=== PATIENT | female | born 1945 | race African-American/Black ===

== ENCOUNTER 2022-06-25 19:41 | Observation (INO) | payer MEDICARE, MEDICAID ==
[2022-06-25 20:06] VITALS: BMI 29.6
[2022-06-25] MEDS ORDERED: HYDROcodone/Acetaminophen 5/325 mg Tablet PO PRN (21:53)
[2022-06-25] MEDS ORDERED: Acetaminophen 325 MG TAB PO PRN (21:53)
[2022-06-25] MEDS ORDERED: Nitroglycerin 0.4 MG TAB (25 Tab Bottle) SL PRN (21:53)
[2022-06-25] MEDS ORDERED: Cyclobenzaprine 10 MG TAB PO PRN (22:58)
[2022-06-25] MEDS ORDERED: Furosemide 40 MG/4 ML VIAL SLOW IVP SCH (23:00)
[2022-06-25] MEDS ORDERED: cloNIDine 0.1 MG TAB PO PRN (23:15)
[2022-06-25] MEDS: Nitroglycerin 2% Ointment 1 INCH/1 GM Packet TOP SCH (23:17)
[2022-06-26 05:12] LABS: Hemoglobin A1c 5.4 % (4.0-6.0)
[2022-06-26 05:13] LABS: #Eosinphils 0.4 thou/uL (0.0-0.7); #Lymphocytes 2.4 thou/uL (1.20-3.40); #Monocytes 0.5 thou/uL (0.11-0.59); #Neutrophils 2.5 thou/uL (1.40-6.50); %Basophils 0.8 % (0.0-1.0); %Eosinophils 7.6 % (0.0-10.0); %Lymphocytes 40.6 % (21.0-51.0); %Monocytes 8.3 % (0.0-10.0); %Neutrophils 42.8 % (42.0-75.0); Hemoglobin 12.6 g/dL (12.0-16.0); Mean Corpuscular HGB CONC 33.1 g/dL (32.0-36.0); Mean Corpuscular Hemoglobin 30.3 pg (27.0-31.0); Mean Corpuscular Volume 91.7 fl (78.0-98.0); Mean Platelet Volume 8.4 fL (7.4-10.4); Platelet Count 211 10x3/uL (130-400); RBC Distribution Width 12.5 % (11.5-14.5); Red Blood Cell (RBC) Count 4.14 mill/uL (4.20-5.40); White Blood Cell (WBC) Count 5.9 10x3/uL (4.8-10.8)
[2022-06-26 05:32] LABS: Anion Gap 11 mmol/L (10-20); BUN (Urea Nitrogen) 19 mg/dL (9.8-20.1); Calc. Creatinine Clearance 91 mL/min (70-130); Calcium 9.1 mg/dL (7.8-10.44); Carbon Dioxide 27 mmol/L (23-31); Cardiac Risk 4.5 (Less than 4.5); Chloride 104 mmol/L (98-107); Cholesterol 231 mg/dl (< 200 Desired); Estimated GFR 77; Glucose 95 mg/dL (83-110); HDL Cholesterol 51 mg/dL (>60 Neg Risk); LDL Cholesterol, Calculated 158 mg/dL; Potassium 3.5 mmol/L (3.5-5.1); Sodium 138 mmol/L (136-145); Triglycerides 112 mg/dL (Less than 150)
[2022-06-26] MEDS: Nitroglycerin 2% Ointment 1 INCH/1 GM Packet TOP SCH ×2 (05:58→14:41)
[2022-06-26] MEDS ORDERED: Valsartan 80 MG TAB PO SCH (09:00)
[2022-06-26] MEDS ORDERED: Aspirin Chewable 81 MG TAB PO SCH (09:00)
[2022-06-26] MEDS ORDERED: Regadenoson 0.4 MG/5 ML SYRINGE ONE (09:04)
[2022-06-26 16:09] VITALS: BP 137/74; TEMP 97.6
[2022-06-26] MEDS ORDERED: Carvedilol 6.25 MG TAB PO SCH (17:00)
[2022-06-26] MEDS ORDERED: Metoprolol Tartrate 25 MG TAB PO SCH (18:00)
== END 2022-06-26 17:40 | disposition home or self-care (01) ==
LOC: 2SW 20:00
PROVIDERS: ADMIT Internal Medicine; ATTEND Internal Medicine
DX: R10.13 Epigastric pain (principal); I11.0 Hypertensive heart disease with heart failure; I50.32 Chronic diastolic (congestive) heart failure; E78.5 Hyperlipidemia, unspecified; I49.3 Ventricular premature depolarization; I45.10 Unspecified right bundle-branch block; I08.8 Other rheumatic multiple valve diseases; Z87.891 Personal history of nicotine dependence; Z79.1 Long term (current) use of non-steroidal anti-inflammatories (NSAID); Z79.82 Long term (current) use of aspirin; Z79.899 Other long term (current) drug therapy; Z88.1 Allergy status to other antibiotic agents; Z91.010 Allergy to peanuts; Z20.822 Contact with and (suspected) exposure to COVID-19
CPT/HCPCS: 78452; 80048; 80061; 83036; 83735; 83880; 84443; 85025; 93017; 93306; 94760; A9500; U0003; U0005; 36415; 96372; 96374; G0378; J1650; J1940

== ENCOUNTER 2022-07-08 03:08 | Inpatient (IN) | payer MEDICARE, MEDICAID ==
[2022-07-08] MEDS ORDERED: Ipratropium/Albuterol 3 ML NEB ONE (03:55)
[2022-07-08 04:01] LABS: #Eosinphils 0.3 thou/uL (0.0-0.7); #Lymphocytes 1.5 thou/uL (1.20-3.40); #Monocytes 0.3 thou/uL (0.11-0.59); #Neutrophils 4.3 thou/uL (1.40-6.50); %Basophils 0.5 % (0.0-1.0); %Eosinophils 4.8 % (0.0-10.0); %Lymphocytes 23.6 % (21.0-51.0); %Monocytes 4.3 % (0.0-10.0); %Neutrophils 66.9 % (42.0-75.0); Hemoglobin 12.3 g/dL (12.0-16.0); Mean Corpuscular HGB CONC 33.7 g/dL (32.0-36.0); Mean Corpuscular Hemoglobin 30.8 pg (27.0-31.0); Mean Corpuscular Volume 91.4 fl (78.0-98.0); Mean Platelet Volume 8.8 fL (7.4-10.4); Platelet Count 196 10x3/uL (130-400); RBC Distribution Width 12.6 % (11.5-14.5); Red Blood Cell (RBC) Count 3.98 mill/uL (4.20-5.40); White Blood Cell (WBC) Count 6.4 10x3/uL (4.8-10.8)
[2022-07-08 04:20] LABS: ALT (SGPT) 38 U/L (8-55); AST (SGOT) 44 U/L (5-34); Albumin 3.7 g/dL (3.4-4.8); Alkaline Phosphatase 62 U/L (40-110); Anion Gap 13 mmol/L (10-20); BUN (Urea Nitrogen) 15 mg/dL (9.8-20.1); Bilirubin, Total 0.5 mg/dL (0.2-1.2); Calc. Creatinine Clearance 0 mL/min (70-130); Calcium 8.9 mg/dL (7.8-10.44); Carbon Dioxide 22 mmol/L (23-31); Chloride 109 mmol/L (98-107); Estimated GFR 77; Globulin 3.3 g/dL (2.4-3.5); Glucose 143 mg/dL (83-110); Magnesium 1.9 mg/dL (1.6-2.6); Potassium 3.8 mmol/L (3.5-5.1); Sodium 140 mmol/L (136-145)
[2022-07-08] MEDS ORDERED: Acetaminophen 500 MG TAB ONE (04:27)
[2022-07-08] MEDS ORDERED: Aspirin Chewable 81 MG TAB ONE (04:27)
[2022-07-08 06:49] LABS: Bacteria/HPF None Seen HPF (None Seen); Bilirubin Negative (Negative); Blood, Urine Negative (Negative); Clarity Clear (Clear); Glucose, Urine (Dipstick) Normal (Negative); Ketone, Urine Negative (Negative); Leukocyte Negative Leu/uL (Negative); Nitrite Negative (Negative); Protein, Urine (Dipstick) 50 mg/dL (Neg-Trace); RBC/HPF 0-3 HPF (0-3); Specific Gravity, Urine 1.016 (1.002-1.036); Squamous Epithelial 0-3 HPF (0-3); Urobilinogen Normal mg/dL (Less than 2); WBC/HPF 0-3 HPF (0-3)
[2022-07-08 08:32] LABS: Troponin I 0.024 ng/mL (< 0.028)
[2022-07-08] MEDS ORDERED: Acetaminophen 325 MG TAB PO PRN (08:33)
[2022-07-08] MEDS ORDERED: Ipratropium/Albuterol 3 ML NEB NEB PRN (08:33)
[2022-07-08] MEDS ORDERED: Metoclopramide HCl 10 MG/2 ML VIAL IVP PRN (08:37)
[2022-07-08] MEDS ORDERED: Iopamidol-370 76% 500 ML 1 ML ONE (08:38)
[2022-07-08] MEDS: Valsartan 80 MG TAB PO SCH (09:28)
[2022-07-08] MEDS: Carvedilol 6.25 MG TAB PO SCH ×2 (10:08→16:45)
[2022-07-08 10:37] LABS: Troponin I 0.017 ng/mL (< 0.028)
[2022-07-08] MEDS ORDERED: Furosemide 20 MG/2 ML VIAL SLOW IVP SCH (10:45)
[2022-07-08] MEDS ORDERED: Furosemide 20 MG/2 ML VIAL ONE (11:02)
[2022-07-08 13:50] VITALS: BMI 29.3
[2022-07-08] MEDS: Atorvastatin Calcium 20 MG TAB PO SCH (21:30)
[2022-07-09] MEDS ORDERED: Electrolyte Replacement Protocol 1 EACH FS SCH (01:45)
[2022-07-09] MEDS ORDERED: Magnesium 2 GM/50 ML(in water) 2 GM in Premix Bag 1 BAG IVPB SCH (02:00)
[2022-07-09 02:20] LABS: #Lymphocytes 1.7 thou/uL (1.20-3.40); #Monocytes 0.7 thou/uL (0.11-0.59); #Neutrophils 6.8 thou/uL (1.40-6.50); %Basophils 0.2 % (0.0-1.0); %Eosinophils 0.2 % (0.0-10.0); %Lymphocytes 18.1 % (21.0-51.0); %Monocytes 7.5 % (0.0-10.0); Hemoglobin 11.4 g/dL (12.0-16.0); Mean Corpuscular HGB CONC 33.4 g/dL (32.0-36.0); Mean Corpuscular Hemoglobin 30.8 pg (27.0-31.0); Platelet Count 190 10x3/uL (130-400); RBC Distribution Width 12.7 % (11.5-14.5); Red Blood Cell (RBC) Count 3.69 mill/uL (4.20-5.40); White Blood Cell (WBC) Count 9.2 10x3/uL (4.8-10.8)
[2022-07-09 02:36] LABS: Anion Gap 8 mmol/L (10-20); BUN (Urea Nitrogen) 25 mg/dL (9.8-20.1); Calc. Creatinine Clearance 73 mL/min (70-130); Calcium 9.4 mg/dL (7.8-10.44); Carbon Dioxide 26 mmol/L (23-31); Chloride 108 mmol/L (98-107); Estimated GFR 60; Glucose 104 mg/dL (83-110); Magnesium 2.1 mg/dL (1.6-2.6); Potassium 4.1 mmol/L (3.5-5.1); Sodium 138 mmol/L (136-145)
[2022-07-09] MEDS: Aspirin 81 mg Enteric Coated Tablet PO SCH (08:59)
[2022-07-09] MEDS ORDERED: Furosemide 20 MG/2 ML VIAL SLOW IVP SCH (09:00)
[2022-07-09] MEDS: Valsartan 80 MG TAB PO SCH (09:01)
[2022-07-09] MEDS: Amlodipine 5 MG TAB PO SCH (09:47)
[2022-07-09] MEDS ORDERED: Simethicone Chewable 80 MG TAB PO PRN (19:08)
[2022-07-09] MEDS: Atorvastatin Calcium 20 MG TAB PO SCH (22:16)
[2022-07-10 06:23] LABS: Anion Gap 10 mmol/L (10-20); BUN (Urea Nitrogen) 19 mg/dL (9.8-20.1); Calc. Creatinine Clearance 87 mL/min (70-130); Calcium 9.1 mg/dL (7.8-10.44); Carbon Dioxide 28 mmol/L (23-31); Chloride 104 mmol/L (98-107); Estimated GFR 74; Glucose 96 mg/dL (83-110); Potassium 3.8 mmol/L (3.5-5.1); Sodium 138 mmol/L (136-145)
[2022-07-10] MEDS ORDERED: Spironolactone 25 MG TAB PO SCH (08:00)
[2022-07-10] MEDS: Aspirin 81 mg Enteric Coated Tablet PO SCH (08:16)
[2022-07-10] MEDS: Amlodipine 5 MG TAB PO SCH (08:16)
[2022-07-10] MEDS: Valsartan 80 MG TAB PO SCH (08:17)
[2022-07-10] MEDS ORDERED: Potassium Chloride 20 MEQ TAB PO SCH (08:30)
[2022-07-10] MEDS ORDERED: Amlodipine 5 MG TAB PO SCH (08:30)
[2022-07-10] MEDS ORDERED: Amlodipine 10 MG TAB PO SCH (09:00)
[2022-07-10] MEDS ORDERED: Furosemide 20 MG TAB PO SCH (09:00)
[2022-07-10 12:19] VITALS: TEMP 97.3
[2022-07-10 12:37] VITALS: BP 164/90
[2022-07-11] MEDS ORDERED: Amlodipine 10 MG TAB PO SCH (09:00)
== END 2022-07-10 16:18 | disposition home or self-care (01) | DRG 291 ==
LOC: ERS 03:08 → ERHOLD 05:48 → 2SW 12:52 → OBSVTOIN 18:52
PROVIDERS: ADMIT Internal Medicine; ATTEND Internal Medicine
DX: I11.0 Hypertensive heart disease with heart failure (principal); I50.33 Acute on chronic diastolic (congestive) heart failure; Z20.822 Contact with and (suspected) exposure to COVID-19; I45.10 Unspecified right bundle-branch block; I44.1 Atrioventricular block, second degree; R00.1 Bradycardia, unspecified; I34.0 Nonrheumatic mitral (valve) insufficiency; K76.0 Fatty (change of) liver, not elsewhere classified; R10.13 Epigastric pain; I16.0 Hypertensive urgency; R94.31 Abnormal electrocardiogram [ECG] [EKG]; R21 Rash and other nonspecific skin eruption; Z87.891 Personal history of nicotine dependence; Z88.1 Allergy status to other antibiotic agents; Z91.010 Allergy to peanuts; Z90.710 Acquired absence of both cervix and uterus; Z79.899 Other long term (current) drug therapy; Z79.82 Long term (current) use of aspirin
CPT/HCPCS: 36415; 71046; 71275; 76700; 80048; 80053; 81003; 81015; 83735; 83880; 84484; 85025; 93005; 93010; 94640; 96365; 96372; 96375; G0378; J1650; J1940; J3475; J7620; Q9967; U0003; U0005